=== PATIENT | female | born 1970 | race Two or more races ===

== ENCOUNTER 2022-07-08 06:45 | Day surgery (SDC) | payer OTHER ==
[~2022-07-08 06:45] MED LIST: FARXIGA5 MG PO; JANUVIA100 MG PO
== END 2022-07-08 11:35 | disposition home or self-care (01) ==
LOC: AMB-ENDOS 06:45
PROVIDERS: ATTEND Surgery
DX: K62.5 Hemorrhage of anus and rectum (principal); K57.30 Diverticulosis of large intestine without perforation or abscess without bleeding; K21.00 Gastro-esophageal reflux disease with esophagitis, without bleeding; K29.60 Other gastritis without bleeding; K44.9 Diaphragmatic hernia without obstruction or gangrene; K64.2 Third degree hemorrhoids; D50.9 Iron deficiency anemia, unspecified; Z20.822 Contact with and (suspected) exposure to COVID-19

== ENCOUNTER 2022-07-10 05:23 | Day surgery (SDC) | payer OTHER ==
[~2022-07-10] VITALS: Ht 160 cm; Wt 59.0 kg
[2022-07-10] MEDS ORDERED: NEURONTIN300 MG PO (09:35)
[2022-07-10] MEDS ORDERED: PERCOCET 5-3251 EACH PO (09:35)
[2022-07-10] MEDS ORDERED: DERMOPLAST PAIN78 GM TOP (09:36)
[2022-07-10] MEDS ORDERED: KETO10TA2 PO (09:36)
== END 2022-07-10 13:35 | disposition home or self-care (01) ==
LOC: CIR.AMB 05:23 → EDSTATUS 10:15 → CIR.AMB 10:15 → SURH 10:15 → CIR.AMB 13:35
PROVIDERS: ATTEND Surgery
DX: K62.3 Rectal prolapse (principal); N81.6 Rectocele; K64.2 Third degree hemorrhoids; K62.5 Hemorrhage of anus and rectum; K21.00 Gastro-esophageal reflux disease with esophagitis, without bleeding; D50.9 Iron deficiency anemia, unspecified; Z20.822 Contact with and (suspected) exposure to COVID-19; I10 Essential (primary) hypertension